=== PATIENT | female | born 1980 | race African-American/Black ===

== ENCOUNTER → 2018-01-22 | Outpatient (CLI) | payer BC | END | disposition home or self-care (01) | LOC: US 06:56 | DX: E04.1 Nontoxic single thyroid nodule (principal); Z86.39 Personal history of other endocrine, nutritional and metabolic disease | CPT/HCPCS: 76536 ==

== ENCOUNTER → 2018-02-07 | Outpatient (CLI) | payer BC | END | disposition home or self-care (01) | LOC: US 13:36 | DX: E04.1 Nontoxic single thyroid nodule (principal) | CPT/HCPCS: 10022; 60300; 76942; 88173 ==

== ENCOUNTER → 2020-05-16 | Outpatient (CLI) | payer BC, MEDICAID, OTHER ==
--- NOTE | 2020-05-16 08:36 | RAD ---
Examination: THYROID ULTRASOUND History: Reason: LT THYROID NODULE / Spl. Instructions: / History: Comparison/Correlation: 01/22/2018 and ultrasound exam, 02/07/2018 ultrasound-guided thyroid nodule biopsy. Findings: Right thyroid lobe measures 5 cm x 2.2 cm x 1.9 cm. Left thyroid lobe measures 6.7 cm x 2.8 cm 4.1 cm. The thyroid lobe nodule at the interpolar to lower polar region is again seen but currently measures 4.3 cm x 2.8 cm x 2.3 cm. Mostly anechoic component within it is seen with internal echoes. There is no right thyroid lobe nodule or mass. Thyroid isthmus measures up to 0.7 cm anteroposterior. Impression: Interval increase in size of the left thyroid lobe mass by at 0.9 cm or more in each of the dimensions. Interval development of mostly anechoic component with internal echoes. TI-RADS category 4-moderately suspicious. Considering interval increase in size and the anechoic component with internal echoes, repeat biopsy should be considered. Electronically signed by: Duarte Lees MD (05/16/2020 8:33 AM) [id number]
== END | disposition home or self-care (01) ==
LOC: US 06:21
PROVIDERS: ATTEND Family Medicine
DX: E04.1 Nontoxic single thyroid nodule (principal)
CPT/HCPCS: 76536

== ENCOUNTER → 2020-07-22 | Outpatient (CLI) | payer OTHER ==
--- NOTE | 2020-07-22 16:32 | RAD ---
EXAM: ULTRASOUND-GUIDED THYROID FINE-NEEDLE ASPIRATION. HISTORY: Thyroid nodule. Ultrasound-guided biopsy is requested. The nodule has previously been biopsied in 2018 with benign results but it is growing and is requested for fine-needle aspiration biopsy prior to surgical management. FINDINGS: The procedure along with its risks and benefits were explained to the patient. They agreed to proceed. A timeout procedure was performed. Sonographic images of the thyroid gland were obtained. The solid target nodule in the left thyroid lobe was adequately visualized for biopsy. Dominant thyroid nodule measuring 4.3 cm on prior ultrasound was targeted for biopsy at this visit. The overlying skin was sterilely prepped and infiltrated with 1% lidocaine for local anesthesia. Under ultrasound guidance, 4 aspirates were obtained using 25-gauge needles. These were hand delivered to pathology who determined them adequate for diagnosis. A sterile dressing was placed. There were no immediate complications. IMPRESSION: 1. Successful ultrasound-guided fine-needle aspiration of the dominant left thyroid nodule. Electronically signed by: Yoselin Peralta MD (07/22/2020 4:29 PM) [id number]
--- NOTE | 2020-07-25 15:08 | PATHOLOGY ---
Note [facility] Accession Number: [id number] TESTS RESULT FLAG UNITS REF RANGE LAB Clinician Provided Cytology Information No. of containers..01 Other (Miscellaneous) Source: 01 N DIAGNOSIS: 02 N NEGATIVE FOR MALIGNANT CELLS. B[place]ES[place] CATEGORY II. SPECIMEN CONSISTS OF ABUNDANT BENIGN FOLLICULAR CELLS, HEMOSIDERIN-LADEN MACROPHAGES, SCANT COLLOID AND BLOOD. THE PATTERN IS CONSISTENT WITH ADENOMATOID NODULE. THIS INTERPRETATION INCLUDES EVALUATION OF A CELL BLOCK. Pathologist ICD10: 02 E04.1 Signed out by: 02 Tito Vu MD, Pathologist NPI- [id number] Performed by: Isadora Waldron, Head Cd Reactor Operator ([facility]) Gross description: 01 30ML, RED, 2FX 2AD 2H /LCS 07/22/2020 1743 Local FLAG LEGEND: L-Low Normal,H-High Normal,LL-Alert Low,HH-Alert High <-Panic Low,>-Panic High,A-Abnormal,AA-Critical Abnormal Performed at: [facility] [address] [place] [address] Rigo Holbrook MD, 02 [facility] [address] [address] Tito Vu MD, Specimen Comment: A courtesy copy of this report has been sent to [phone] Specimen Comment: [id number] Specimen Comment: Report sent to Performed at: [address], [place], [place] [id number] MD Rigo Holbrook MD Phone: [phone]
== END | disposition home or self-care (01) ==
LOC: US 10:12
PROVIDERS: ATTEND Family Medicine
DX: E04.1 Nontoxic single thyroid nodule (principal); Z79.899 Other long term (current) drug therapy
CPT/HCPCS: 10005; 60300; 76942; 88173; 88305

== ENCOUNTER → 2020-12-07 | Outpatient (CLI) | payer OTHER ==
[~2020-12-07] MED LIST: ZOLPIDEM 5 MG TABLET. PO ONE
--- NOTE | 2020-12-13 14:42 | SLEEP ---
DATE OF STUDY: 12/07/2020 ATTENDING PHYSICIAN: Dr. Boubacar Cristobal. HISTORY OF PRESENT ILLNESS: The patient is a 40-year-old female who weighs 318 pounds with a BMI of 54. The patient's Bagley score was 12. The patient underwent split night study performed at [facility]. During the night study, the patient spent 402 minutes in bed and slept for 314 minutes with a sleep efficiency of 78%. Sleep latency was 51 minutes with a REM latency of 281 minutes. Sleep architecture showed normal stage 1 and stage 2 sleep, increased slow wave and reduced REM sleep. During the initial diagnostic portion of the study, the patient slept for 72 minutes. During that time, there were no obstructive or central apneas. There were 4 mixed apneas and 109 hypopneas. The patient's AHI was 94 per hour. Supine or REM sleep was not seen during the diagnostic portion. EKG monitoring revealed mean heart rate of 73 beats per minute, no sustained arrhythmias observed. Nocturnal oximetry study revealed a mean oxygen saturation of 96% with the lowest of 66%, 19% of time oxygen saturation remained between 80% and 89%. No PLMs observed. The patient met the criteria for CPAP initiation. It was started at 5 cm water and titrated up to 15 cm water. At the final pressure, the patient slept for 75 minutes. The patient had supine and REM sleep. The patient's AHI was reduced to 1 per hour and oxygen saturation remained above 92%. IMPRESSION: 1. Severe obstructive sleep apnea at an AHI of 94 per hour. 2. Nocturnal hypoxia secondary to obstructive sleep apnea, but resolved with CPAP. 3. No PLMs. RECOMMENDATIONS: 1. CPAP at 15 cm water completely eliminated the patient's sleep apnea and should be used on a nightly basis. 2. Follow up in 4-6 weeks to assess compliance with CPAP and to document clinical improvement. 3. Weight loss is advised. 4. 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 5. Cautioned regarding driving until symptoms of sleep apnea resolve with the use of CPAP. JAYANT TRACEY MD DR: ESTELA/yoli JOB#: [id number] / [id number] BOUBACAR Munson MD
== END ==
LOC: SLPLAB 19:19
PROVIDERS: ATTEND Family Medicine
DX: G47.33 Obstructive sleep apnea (adult) (pediatric) (principal); G47.34 Idiopathic sleep related nonobstructive alveolar hypoventilation
CPT/HCPCS: 95810

== ENCOUNTER → 2021-07-07 | Outpatient (CLI) | payer OTHER ==
--- NOTE | 2021-07-07 11:44 | KCIC ---
Exam Date: 07/07/2021 8:24 AM MRI RIGHT UPPER EXTREMITY JOINT WITHOUT CONTRAST Indication: Reason: RIGHT CHRONIC SHOULDER PAIN / Spl. Instructions: Pt scanned in flex coil due to b diego habitus / History: Pt fell 11/20, landed on shoulder. Was holding onto railing when she fell.. TECHNIQUE: Routine multiplanar MR imaging of the shoulder was performed without contrast. FINDINGS: Evaluation is suboptimal due to positioning and body habitus. Abnormal signal in the supraspinatus and infraspinatus tendons is consistent with tendinopathy. No full-thickness rotator cuff tendon tear is identified. The supraspinatus, infraspinatus, teres mi nor and subscapularis tendons are otherwise intact. Rotator cuff musculature demonstrates normal sig nal and bulk. Mild degenerative changes are seen at the AC joint. There is an intact type II acromion. No signifi cant fluid is seen in the subacromial/subdeltoid bursa. Long head of the biceps tendon is intact. Labrum demonstrates grossly normal signal and morphology, though lack of intra-articular contrast limits evaluation. Mild degenerative changes are seen at the glenohumeral joint. Bone marrow demonstrates benign signal on all sequences without acute fracture. IMPRESSION: Supraspinatus and infraspinatus tendinopathy without full-thickness rotator cuff tendon tear. Mild degenerative changes noted. Electronically signed by: Juan Martinez MD (07/07/2021 11:41 AM) [id number]
== END ==
LOC: KCIC MRI 08:07
PROVIDERS: ATTEND Family Medicine
DX: M19.011 Primary osteoarthritis, right shoulder (principal)
CPT/HCPCS: 73221

== ENCOUNTER → 2022-01-19 | Outpatient (CLI) | payer OTHER ==
--- NOTE | 2022-01-19 16:30 | RAD ---
THYROID ULTRASOUND History: Left thyroid nodule, continued monitoring. FNA July 22, 2020 revealed adenomatoid nodule , Avis category 2. Comparison: None. Technique: Multiple grayscale and color Doppler images of the thyroid gland were obtained. Findings: Measurements in length, AP (height), and transverse (width), respectively, unless otherwise stated. The right thyroid lobe measures 5.2 x 1.9 x 2.3 cm. The right thyroid lobe is relatively homogeneous. The left thyroid lobe measures 7.4 x 4.2 x 4.4 cm. The nodule of the mid to left thyroid lobe has increased in size mainly due to enlargement of the jen tral cystic component. The peripheral solid component has subjectively not increased in size. The nod ule measures 5.7 x 3.9 x 3.9 cm, previously 4.3 x 3.3 x 2.8 cm. If the nodule is characterized as cys tic and solid it would be classified as TR2. The thyroid isthmus measures 8 mm AP. ACR Thyroid Imaging, Reporting And Data System (TI-RADS): White Paper Of The ACR TI-RADS Committee. J ournal of the [employer], volume 14, issue 5, pages 587-595 (December 2016). TR1 - 0-1 points; Benign TR2 - 2 points; Not Suspicious TR3 - 3 points; Mildly Suspicious; Follow-up at 1,3,5 years for >= 1.5cm and FNA for >=2.5cm TR4 - 4-6 points; Moderately Suspicious; Follow-up at 1,2,3,5 years for >= 1.0cm and FNA for >= 1.5cm TR5 - 7+ points; Highly Suspicous; Follow=up at 1,2,3,4,5 years for >= 0.5cm and FNA for >= 1.0cm IMPRESSION: The large mixed cystic and solid nodule of the left thyroid lobe has increased in size since the prio r study primarily due to enlargement of the central cystic component. There has been interval FNA whi ch was benign. Recommend continued ultrasound surveillance. Electronically signed by: Kvng Wei MD (01/19/2022 4:28 PM) [id number]
== END ==
LOC: US 12:18
PROVIDERS: ATTEND Family Medicine
DX: E04.1 Nontoxic single thyroid nodule (principal)
CPT/HCPCS: 76536